=== PATIENT | male | born 1990 | race Caucasian/White ===

== ENCOUNTER 2021-03-26 14:37 | Emergency (ER) | payer OTHER, SELFPAY ==
[2021-03-26 14:47] VITALS: BP 174/108; PULSE 95; RESP 16; TEMP 36.6; O2SAT 98; BMI 26.6
--- NOTE | 2021-03-26 14:51 | DI.RAD.S_ITS ---
PROCEDURE: XR CHEST 1V INDICATIONS: chest pain TECHNIQUE: One view of the chest was acquired. COMPARISON: None. FINDINGS: Surgical changes and devices: None. Lungs and pleura: Lungs are clear. No pleural effusions or pneumothorax. Mediastinum: Mediastinal contours appear normal. Heart size is normal. Bones and chest wall: No suspicious bony lesions. Overlying soft tissues appear unremarkable. IMPRESSION: No acute cardiopulmonary findings Approved by: Ananda Perez M.D. on 03/26/2021 at 14:39
[2021-03-26 15:21] LABS: Add Manual Diff / Slide Review NO; Basophils Absolute Auto 100 /uL (0-100); Basophils Percent Auto 1.1 % (0-2); Eosinophils Absolute Auto 200 /uL (0-450); Eosinophils Percent Auto 4.4 % (2-4); Hematocrit 39.7 % (41-53); Lymphocytes Absolute Auto 2300 /uL (1100-4500); Mean Corpuscular HGB Conc 35.2 % (30-36); Mean Corpuscular Hemoglobin 36.4 PG (26-34); Mean Corpuscular Volume 103.3 fL (80-100); Monocytes Absolute Auto 500 /uL (0-900); Monocytes Percent Auto 10.5 % (3-14); Neutrophils Absolute Auto 1700 /uL (1500-7000); Platelet Count 244 X10^3/uL (150-400); Red Blood Cell Count 3.84 X10^6/uL (4.5-5.9); Red Cell Distribution Width 13.9 % (11.6-14.8); White Blood Cell Count 4.8 X10^3/uL (4.5-11.0)
[2021-03-26 15:22] LABS: Alanine Aminotransferase 200 IU/L (<50); Albumin 4.7 g/dL (3.5-5.0); Albumin Globulin Ratio 1.4 (1.0-2.8); Alkaline Phosphatase 70 U/L (38-126); Aspartate Aminotransferase 132 IU/L (17-59); BUN Creatinine Ratio 17.8 (6-22); Bilirubin Total 0.6 mg/dL (0.2-1.3); Blood Urea Nitrogen 16 mg/dL (9-20); Calcium 9.7 mg/dL (8.4-10.2); Carbon Dioxide 23 mmol/L (22-32); Chloride 104 mmol/L (98-107); Creatine Kinase 76 U/L (55-170); Estimated Glomerular Filt Rate > 60.0 mL/min (>60); Globulin 3.3 g/dL (1.7-4.1); Glucose 122 mg/dL (70-100); HEMOLYSIS 25 (0-50); Lipase 102 U/L (23-300); Potassium 3.8 mmol/L (3.4-5.1); Sodium 138 mmol/L (137-145)
[2021-03-26 15:34] LABS: Troponin I < 0.012 ng/mL (0.01-0.034)
[2021-03-26 16:11] LABS: Magnesium 1.6 mg/dL (1.6-2.3)
[2021-03-26 16:42] LABS: TSH w/ Reflex to FT4 1.75 uIU/mL (0.47-4.68)
[2021-03-26 18:06] VITALS: BP 155/103; PULSE 68; O2SAT 100
--- NOTE | 2021-03-26 18:14 | ED_ITS ---
HPI - Chest Pain General Chief Complaint: Chest Pain Stated Complaint: Thinks Heart Attack Time Seen by Provider: 03/26/21 18:06 Source: patient Mode of arrival: Ambulatory Limitations: no limitations History of Present Illness HPI narrative: 30-year-old male with history of anxiety and alcoholism presenting today with what he thinks was a heart attack. He said he was driving home after getting his cats nails clipped he was about 2 minutes from his house when he started having very physical reaction he felt some heaviness may be some palpitations and pressure in his chest. Was so severe he pulled over to have his come pick him up which point they came to the emergency department for further out evaluation. He says it lasted for about an hour and a wax and wane nothing made it better or worse he currently is feeling better after numerous hours in the emergency department. He says he is quite familiar with his panic attack symptoms he is usually able to talk himself down however he does not feel like this is a panic attack he has nothing to be anxious about. He is working with a therapist about his alcoholism. Family history includes a grandfather who of a heart attack probably at an early age he is unsure how old but no other family members with significant coronary artery disease. He did smoke cigarettes for a number of years but quit 2 years ago. He now is feeling better. Related Data Home Medications Medication Instructions Recorded Confirmed [MILK THISTLE] 1 cap PO QDAY #0 10/25/16 05/27/19 Previous Rx's Medication Instructions Recorded buspirone 5 mg tablet 5 mg PO BID #60 tab 10/25/16 etodolac 500 mg tablet,extended 500 mg PO QDAY #90 tab 10/25/16 release 24 hr tizanidine 4 mg tablet 4 - 8 mg PO HSP PRN #60 tab 10/25/16 fluticasone propionate 50 1 spray INTRANASAL QDAY-BID #16 gm 11/01/16 mcg/actuation nasal spray,suspension valacyclovir 500 mg tablet 2,000 mg PO BID #8 tab 11/01/16 Allergies Allergy/AdvReac Type Severity Reaction Status Date / Time No Known Drug Allergies Allergy Verified 03/26/21 14:47 Review of Systems Review of Systems Narrative: GENERAL: Denies chills, fatigue, malaise, fever, sweats, travel HEENT: Denies sinus pain, ear pain, sore throat, difficulty swallowing, neck pain RESPIRATORY: Denies dyspnea, cough, wheezing, hemoptysis, sputum. CARDIOVASCULAR: See HPI GASTROINTESTINAL: Denies nausea, vomiting, abdominal pain, diarrhea, constipation, melena. : Denies dysuria, frequency, incontinence, hematuria, urinary retention, flank pain. MUSCULOSKELETAL: Denies weakness, joint pain, or bony pain SKIN: No rash, no erythema, no pruritus NEUROLOGIC: Denies weakness, dizziness, headache, numbness, change in speech, confusion PSYCHIATRIC: No concerning psychosocial issues. 12 point review of systems is negative except for those stated above and HPI Patient History Surgical History (Updated 12/05/17 @ 06:28 by Sonia Fischer PA-C) Status post orchiectomy Family History (Updated 10/08/15 @ 00:00 by Conversion Provider) Grandmother Heart disease Hypertension Hyperlipidemia Social History Smoking Status: Former smoker Smoking Status: Former smoker alcohol intake frequency: 3 or more drinks per day Exam Initial Vital Signs Initial Vital Signs: Vital Signs Temperature 97.9 F 03/26/21 14:47 Pulse Rate 95 H 03/26/21 14:47 Respiratory Rate 16 03/26/21 14:47 Blood Pressure 174/108 H 03/26/21 14:47 Pulse Oximetry 98 03/26/21 14:47 GENERAL: Well-appearing, well-nourished and in no acute distress. HEENT: Head atraumatic,EOMI, pupils reactive, face symmetric, moist mucous membranes CARDIOVASCULAR: Regular rate and rhythm without murmurs, rubs or gallops. RESPIRATORY: Breath sounds equal bilaterally, no wheezes rales or rhonchi. ABDOMEN: Soft, nontender. Normoactive bowel sounds all 4 quadrants. No guarding or rebound. : No CVA tenderness EXTREMITIES: Normal range of motion, no clubbing or edema. Neurovascularly intact NEUROLOGICAL: Alert and oriented x4.Normal gait and speech. SKIN: Warm, dry, no laceration, no petechiae, no rashes or lesions. Scores HEART Score Heart Score history: Slightly Suspicious Heart Score EKG: Normal Heart Score Age: < 45 years old Heart Score risk factors: No known risk factors Heart Score troponin: < or = to normal limit Heart Score Total: 0 Course Orders Ordered: ED Orders 03/26/21 18:28 EKG-12 Lead Stat 03/26/21 18:58 Troponin I Stat Vital Signs Vital signs: Vital Signs - 8 hr 03/26/21 18:06 03/26/21 19:20 03/26/21 19:51 Pulse Rate 68 63 70 Respiratory Rate 16 Blood Pressure 155/103 H 163/102 H 155/91 H Pulse Oximetry 100 98 98 MDM - Chest Pain Lab Data Result diagrams: 03/26/21 14:56 03/26/21 14:56 Labs: Lab Results 03/26/21 03/26/21 03/26/21 Range/Units 14:56 14:56 14:56 WBC 4.8 (4.5-11.0) X10^3/uL RBC 3.84 L (4.5-5.9) X10^6/uL Hgb 14.0 (13.5-17.5) g/dL Hct 39.7 L (41-53) % MCV 103.3 H (80-100) fL MCH 36.4 H (26-34) PG MCHC 35.2 (30-36) % RDW 13.9 (11.6-14.8) % Plt Count 244 (150-400) X10^3/uL Neut % (Auto) 35.0 L (50-75) % Lymph % (Auto) 49.0 H (25-40) % [place] % (Auto) 10.5 (3-14) % Eos % (Auto) 4.4 H (2-4) % Baso % (Auto) 1.1 (0-2) % Neut # (Auto) 1700 (2081-8208) /uL Lymph # (Auto) 2300 (1382-2741) /uL [place] # (Auto) 500 (0-900) /uL Eos # (Auto) 200 (0-450) /uL Baso # (Auto) 100 (0-100) /uL Sodium 138 (137-145) mmol/L Potassium 3.8 (3.4-5.1) mmol/L Chloride 104 (98-107) mmol/L Carbon Dioxide 23 (22-32) mmol/L BUN 16 (9-20) mg/dL Creatinine 0.90 (0.66-1.25) mg/dL Estimated GFR > 60.0 (>60) mL/min BUN/Creatinine Ratio 17.8 (6-22) Glucose 122 H (70-100) mg/dL Calcium 9.7 (8.4-10.2) mg/dL Magnesium 1.6 (1.6-2.3) mg/dL Total Bilirubin 0.6 (0.2-1.3) mg/dL AST 132 H (17-59) IU/L ALT 200 H (<50) IU/L Alkaline Phosphatase 70 (38-126) U/L Total Creatine Kinase 76 (55-170) U/L CK-MB (CK-2) TNP CK-MB (CK-2) Rel Index TNP Troponin I < 0.012 (0.01-0.034) ng/mL Total Protein 8.0 (6.3-8.2) g/dL Albumin 4.7 (3.5-5.0) g/dL Globulin 3.3 (1.7-4.1) g/dL Albumin/Globulin Ratio 1.4 (1.0-2.8) Lipase 102 (23-300) U/L TSH (0.47-4.68) uIU/mL 03/26/21 03/26/21 Range/Units 14:56 18:58 WBC (4.5-11.0) X10^3/uL RBC (4.5-5.9) X10^6/uL Hgb (13.5-17.5) g/dL Hct (41-53) % MCV (80-100) fL MCH (26-34) PG MCHC (30-36) % RDW (11.6-14.8) % Plt Count (150-400) X10^3/uL Neut % (Auto) (50-75) % Lymph % (Auto) (25-40) % [place] % (Auto) (3-14) % Eos % (Auto) (2-4) % Baso % (Auto) (0-2) % Neut # (Auto) (6351-2513) /uL Lymph # (Auto) (7052-9907) /uL [place] # (Auto) (0-900) /uL Eos # (Auto) (0-450) /uL Baso # (Auto) (0-100) /uL Sodium (137-145) mmol/L Potassium (3.4-5.1) mmol/L Chloride (98-107) mmol/L Carbon Dioxide (22-32) mmol/L BUN (9-20) mg/dL Creatinine (0.66-1.25) mg/dL Estimated GFR (>60) mL/min BUN/Creatinine Ratio (6-22) Glucose (70-100) mg/dL Calcium (8.4-10.2) mg/dL Magnesium (1.6-2.3) mg/dL Total Bilirubin (0.2-1.3) mg/dL AST (17-59) IU/L ALT (<50) IU/L Alkaline Phosphatase (38-126) U/L Total Creatine Kinase (55-170) U/L CK-MB (CK-2) CK-MB (CK-2) Rel Index Troponin I < 0.012 (0.01-0.034) ng/mL Total Protein (6.3-8.2) g/dL Albumin (3.5-5.0) g/dL Globulin (1.7-4.1) g/dL Albumin/Globulin Ratio (1.0-2.8) Lipase (23-300) U/L TSH 1.75 (0.47-4.68) uIU/mL Imaging Data Chest x-ray: Radiologist's Impression: PROCEDURE: XR CHEST 1V INDICATIONS: chest pain TECHNIQUE: One view of the chest was acquired. COMPARISON: None. FINDINGS: Surgical changes and devices: None. Lungs and pleura: Lungs are clear. No pleural effusions or pneumothorax. Mediastinum: Mediastinal contours appear normal. Heart size is normal. Bones and chest wall: No suspicious bony lesions. Overlying soft tissues [place] unremarkable. IMPRESSION: No acute cardiopulmonary findings Approved by: Ananda Perez M.D. on 03/26/2021 at 14:39 ECG Data Interpretation: EKG 1. Normal sinus rhythm rate 84 AL interval 166 QRS [address] changes no T-wave inversions EKG 2. Normal sinus rhythm rate 67 AL interval 178 QRS [address] changes no changes from previous MDM Narrative Medical decision making narrative: Patient does have a history of anxiety [place] he states this was not anxiety. It is possible he had an arrhythmia which caused his symptoms. As he has no significant risks risk factors he has a low risk heart score 2- troponins and no changes in his EKG. At this time I have discussed the results with patient and . Is encouraged outpatient follow-up for possible Holter monitor. Symptoms are not consistent with pulmonary embolism, no further testing or imaging indicated at this time. Discussed with patient decreasing his alcohol use he apparently drinks handle of hard liquor every other day. No sign of was drawn at this time. Discharge Plan Departure Patient Disposition: Home Clinical Impression: Heart palpitations, Atypical chest pain Instructions: Arrhythmias, DI for Atypical Chest Pain Activity Restrictions/Additional Instructions: *You have been diagnosed with atypical chest pain, palpitation *What to do: At this time is unclear what caused her discomfort today. Possibly in a rhythmic. This may require a Holter monitor as an outpatient. No abnormalities today were found. He may require further workup with her primary care provider. *Continue to take medications as directed *Follow up with your primary care provider in 2-3 days *Return to ER if you should have such increasing palpitations, chest pain or shortness of breath or any new, worsening or concerning symptoms Prescriptions: No Action [MILK THISTLE] 1 cap PO QDAY Qty: 0 RF: 0 buspirone 5 MG tablet 5 mg PO BID Qty: 60 RF: 1 etodolac 500 MG tablet extended release 24 hr 500 mg PO QDAY Qty: 90 RF: 0 tizanidine 4 MG tablet 4 - 8 mg PO HSP PRNQty: 60 RF: 1 valacyclovir 500 MG tablet 2,000 mg PO BID Qty: 8 RF: 3 fluticasone propionate 16 GM spray,suspension 1 spray Intranasal QDAY-BID Qty: 16 RF: 1 Referrals: Sonia Fischer PA-C [Primary Care Provider] -
[2021-03-26 19:20] VITALS: BP 163/102; PULSE 63; RESP 16; O2SAT 98
[2021-03-26 19:27] LABS: Troponin I < 0.012 ng/mL (0.01-0.034)
[2021-03-26 19:51] VITALS: BP 155/91; PULSE 70; O2SAT 98
== END 2021-03-26 19:52 | disposition home or self-care (01) ==
PROVIDERS: Emergency Medicine; Emergency Provider Emergency Medicine; Family Provider Physician Assistant; PCP Physician Assistant
DX: R00.2 Palpitations (principal); R07.89 Other chest pain
CPT/HCPCS: 36415; 71045; 80053; 82550; 83690; 83735; 84443; 84484; 85025; 93005; 93010; 99284

== ENCOUNTER → 2021-04-28 13:25 | Outpatient (CLI) | payer OTHER, SELFPAY ==
--- NOTE | 2021-05-12 09:18 | PM.CARDMON.1 ---
[facility] Psychiatrist Report Referral & Results Date Patient Seen: 04/28/21 Requesting provider: Nader Bolton Indication: Palpitations Duration of monitoring (days): 7 Diary information: There was 1 patient triggered event associated with sinus rhythm only Data: Minimum heart rate identified was 36 beats per minute at 08:12 on 05/01/2021 Maximum heart rate was 187 beats per minute at 17:44 on 05/02/2021 Less than 1% of identified beats were ventricular or supraventricular ectopic in origin, which would classify them as rare. There was 1 run of SVT at a rate of 135 beats per minute, that was 4 beats in duration. This may be more of an atrial tachycardia than true SVT Impression: 7+ day media monitor demonstrating perhaps mild bradycardia times with minimum heart rate being 36 beats per minute. Otherwise no significant dysrhythmias identified
== END ==
PROVIDERS: Family Provider Physician Assistant; PCP Physician Assistant; Referring Provider Family Medicine; Visit Provider Family Medicine
DX: R00.2 Palpitations (principal); R42 Dizziness and giddiness
CPT/HCPCS: 93242; 93244

== ENCOUNTER → 2021-06-28 15:05 | Outpatient (CLI) | payer OTHER, SELFPAY ==
[2021-06-28 15:24] LABS: Add Manual Diff / Slide Review NO; Basophils Absolute Auto 0 /uL (0-100); Basophils Percent Auto 0.5 % (0-2); Eosinophils Absolute Auto 100 /uL (0-450); Eosinophils Percent Auto 2.4 % (2-4); Hematocrit 41.8 % (41-53); Hemoglobin 14.7 g/dL (13.5-17.5); Lymphocytes Absolute Auto 1900 /uL (1100-4500); Lymphocytes Percent Auto 47.4 % (25-40); Mean Corpuscular HGB Conc 35.2 % (30-36); Mean Corpuscular Hemoglobin 33.7 PG (26-34); Mean Corpuscular Volume 95.9 fL (80-100); Monocytes Absolute Auto 400 /uL (0-900); Monocytes Percent Auto 10.1 % (3-14); Neutrophils Absolute Auto 1600 /uL (1500-7000); Neutrophils Percent Auto 39.6 % (50-75); Platelet Count 277 X10^3/uL (150-400); Red Blood Cell Count 4.36 X10^6/uL (4.5-5.9); Red Cell Distribution Width 13.1 % (11.6-14.8)
[2021-06-28 17:12] LABS: Alanine Aminotransferase 36 IU/L (<50); Albumin 4.4 g/dL (3.5-5.0); Albumin Globulin Ratio 1.5 (1.0-2.8); Alkaline Phosphatase 52 U/L (38-126); Aspartate Aminotransferase 28 IU/L (17-59); BUN Creatinine Ratio 15.9 (6-22); Bilirubin Total 0.4 mg/dL (0.2-1.3); Blood Urea Nitrogen 13 mg/dL (9-20); Calcium 9.9 mg/dL (8.4-10.2); Carbon Dioxide 25 mmol/L (22-32); Chloride 104 mmol/L (98-107); Estimated Glomerular Filt Rate > 60.0 mL/min (>60); Glucose 118 mg/dL (70-100); HEMOLYSIS < 15 (0-50); Potassium 4.2 mmol/L (3.4-5.1); Sodium 139 mmol/L (137-145); Total Protein 7.4 g/dL (6.3-8.2)
== END ==
PROVIDERS: Family Provider Physician Assistant; PCP Family Medicine; Referring Provider Family Medicine; Visit Provider Family Medicine
DX: D75.89 Other specified diseases of blood and blood-forming organs (principal); R74.8 Abnormal levels of other serum enzymes
CPT/HCPCS: 36415; 80053; 85025

== ENCOUNTER → 2023-01-11 14:16 | Outpatient (CLI) | payer OTHER, SELFPAY ==
--- NOTE | 2023-01-11 | DI.US.S_ITS ---
PROCEDURE: US ABDOMEN LIMITED INDICATIONS: ELEVATED LIVER ENZYMES TECHNIQUE: Real-time scanning was performed of the abdominal and retroperitoneal organs, with image documentation. COMPARISON: None. FINDINGS: Liver: The liver measures 16.6 cm in length and demonstrates increased echogenicity. Gallbladder: The gallbladder wall measures 2 mm in diameter. Biliary ducts: Intrahepatic bile ducts are non-dilated. Extrahepatic bile duct caliber measures 3.5 mm. Normal is 6-7 mm or less in diameter, or 10 mm or less post-cholecystectomy. Pancreas: Not visualized. IMPRESSION: 1. Increased hepatic echogenicity noted likely related to fatty infiltration of the liver but other sources of hepatocellular disease cannot be excluded. 2. No cholelithiasis or findings to suggest choledocholithiasis or acute cholecystitis. Dictated by: Karla Christina M.D. on 01/11/2023 at 15:55 Approved by: Karla Christina M.D. on 01/11/2023 at 15:57
[2023-01-11 15:53] LABS: Add Manual Diff / Slide Review NO; Basophils Absolute Auto 0 /uL (0-100); Basophils Percent Auto 0.5 % (0-2); Eosinophils Absolute Auto 200 /uL (0-450); Eosinophils Percent Auto 4.6 % (2-4); Hematocrit 41.3 % (41-53); Hemoglobin 14.4 g/dL (13.5-17.5); Lymphocytes Absolute Auto 1400 /uL (1100-4500); Lymphocytes Percent Auto 32.3 % (25-40); Mean Corpuscular HGB Conc 34.9 % (30-36); Mean Corpuscular Hemoglobin 38.1 PG (26-34); Mean Corpuscular Volume 109.1 fL (80-100); Monocytes Absolute Auto 400 /uL (0-900); Monocytes Percent Auto 9.6 % (3-14); Neutrophils Absolute Auto 2200 /uL (1500-7000); Platelet Count 226 X10^3/uL (150-400); Red Blood Cell Count 3.79 X10^6/uL (4.5-5.9); White Blood Cell Count 4.2 X10^3/uL (4.5-11.0)
[2023-01-11 16:06] LABS: HEMOLYSIS < 15 (0-50); Iron 123 ug/dL (49-181)
[2023-01-11 16:18] LABS: Percent Iron Saturation 31 % (20-50); Total Iron Binding Capacity 400 ug/dL (261-462); Transferrin 299 mg/dL (206-381)
[2023-01-11 16:43] LABS: Ferritin 582 ng/mL (18-464)
[2023-01-12 04:27] LABS: Hepatitis B Surf AB Quant 4.2 mIU/mL (Immunity>9.9)
[2023-01-12 06:37] LABS: Hepatitis A Ab IgM Negative (Negative); Hepatitis A Ab Total Positive (Negative)
[2023-01-12 16:18] LABS: Hepatitis B Surface Antigen NEGATIVE s/c (NEGATIVE)
[2023-01-12 16:36] LABS: Hep C Virus Ab w/Reflex Quant NEGATIVE s/c (NEGATIVE)
[2023-01-13 02:02] LABS: Hepatitis B Core AB w/Reflex Negative (Negative)
== END ==
PROVIDERS: Family Provider Physician Assistant; PCP Nurse Practitioner Family; Referring Provider Nurse Practitioner Family; Visit Provider Nurse Practitioner Family
DX: D75.89 Other specified diseases of blood and blood-forming organs (principal); R74.01 Elevation of levels of liver transaminase levels; F10.10 Alcohol abuse, uncomplicated
CPT/HCPCS: 36415; 76705; 82728; 83540; 83550; 85025; 86704; 86706; 86708; 86803; 87340

== ENCOUNTER → 2023-02-01 17:21 | Outpatient (CLI) | payer OTHER, SELFPAY ==
[2023-02-01 17:38] LABS: Add Manual Diff / Slide Review NO; Basophils Absolute Auto 100 /uL (0-100); Basophils Percent Auto 0.9 % (0-2); Eosinophils Absolute Auto 200 /uL (0-450); Eosinophils Percent Auto 4.2 % (2-4); Hematocrit 42.2 % (41-53); Lymphocytes Absolute Auto 2700 /uL (1100-4500); Lymphocytes Percent Auto 47.8 % (25-40); Mean Corpuscular HGB Conc 35.5 % (30-36); Monocytes Absolute Auto 400 /uL (0-900); Monocytes Percent Auto 6.6 % (3-14); Neutrophils Absolute Auto 2300 /uL (1500-7000); Neutrophils Percent Auto 40.5 % (50-75); Platelet Count 315 X10^3/uL (150-400); Red Blood Cell Count 4.06 X10^6/uL (4.5-5.9); Red Cell Distribution Width 13.3 % (11.6-14.8); White Blood Cell Count 5.7 X10^3/uL (4.5-11.0)
[2023-02-01 17:49] LABS: Alanine Aminotransferase 218 IU/L (<50); Albumin 4.8 g/dL (3.5-5.0); Albumin Globulin Ratio 1.4 (1.0-2.8); Alkaline Phosphatase 68 U/L (38-126); Aspartate Aminotransferase 119 IU/L (17-59); BUN Creatinine Ratio 10.2 (6-22); Bilirubin Total 0.8 mg/dL (0.2-1.3); Blood Urea Nitrogen 11 mg/dL (9-20); Calcium 9.4 mg/dL (8.4-10.2); Carbon Dioxide 25 mmol/L (22-32); Chloride 99 mmol/L (98-107); Estimated Glomerular Filt Rate > 60 mL/min (>60); Globulin 3.4 g/dL (1.7-4.1); Glucose 94 mg/dL (70-100); HEMOLYSIS < 15 (0-50); Sodium 136 mmol/L (137-145); Total Protein 8.2 g/dL (6.3-8.2)
[2023-02-01 18:06] LABS: Iron 177 ug/dL (49-181)
[2023-02-01 18:15] LABS: Percent Iron Saturation 48 % (20-50); Total Iron Binding Capacity 366 ug/dL (261-462)
== END ==
PROVIDERS: Family Provider Physician Assistant; PCP Nurse Practitioner Family; Referring Provider Nurse Practitioner Family; Visit Provider Nurse Practitioner Family
DX: F10.10 Alcohol abuse, uncomplicated (principal); R74.01 Elevation of levels of liver transaminase levels; D64.9 Anemia, unspecified
CPT/HCPCS: 36415; 80053; 83540; 83550; 85025